=== PATIENT | female | born 1960 | race African-American/Black ===

== ENCOUNTER 2016-12-23 21:39 | Emergency (ER) | payer MEDICAID ==
[~2016-12-23] VITALS: Ht 160 cm; Wt 68.9 kg
[~2016-12-23 21:39] MED LIST: LOTENSIN10 MG PO; TENORMIN50 MG PO
[2016-12-23 22:56] LABS: APPEARANCE,URINE CLEAR; KETONES,URINE NEGATIVE (NEGATIVE); LEUKOCYTE ESTERASE ,URINE 1+ (NEGATIVE); NITRITE,URINE NEGATIVE (NEGATIVE); PH,URINE 7 (4.5-8.0); PROTEIN,URINE 1+ (NEGATIVE); UROBILINOGEN,URINE NORMAL MG/DL (0.0-1.0)
[2016-12-23 23:10] LABS: BACTERIA,URINE FEW /HPF; SQUAMOUS EPITHELIAL CELL,UR FEW /LPF (NONE/OCC); WBC,URINE 0-2 /HPF (0 - 2)
[2016-12-23 23:16] VITALS: BP 150/98
[2016-12-23] MEDS ORDERED: NITROFURANTOIN100 M2 ORAL (23:27)
[2016-12-23] MEDS ORDERED: DIFLUCAN200 MG ORAL (23:27)
[2016-12-23 23:30] VITALS: BP 150/98
--- NOTE | 2016-12-23 23:31 | Emergency Room Report ---
History of Present Illness General Chief Complaint: Female Urogenital Problems Source: Patient Present Illness HPI 56 YO F with 2 days dysuria. Denies assoc fever/chills, flank pain, polyuria. Feels well otherwise. Denies discharge, abd pain, frequent UTI. Allergies: Coded Allergies: No Known Allergies (Unverified , 07/31/12) Patient History Past Medical History: HTN Past Surgical History: none Pertinent Family History: none Social History: Denies: alcohol use, drug use, smoking Last Menstrual Period: YEARS Now: No Immunizations: UTD Reviewed Nursing Documentation: PMH: Agreed, PSxH: Agreed Nursing Documentation-PMH Past Medical History: No History, Except For Hx Cardiac Problems: Yes Hx Hypertension: Yes Hx Pacemaker: No Hx Cancer: No Hx Gastrointestinal Problems: No Hx Neurological Problems: No Review of Systems All Other Systems: negative except mentioned in HPI Physical Exam Vital Signs Date Time Temp Pulse Resp B/P Pulse Ox O2 Delivery O2 Flow Rate FiO2 12/23/16 21:58 97.3 88 14 185/115 100 Room Air Sp02 EP Interpretation: reviewed, normal General Appearance: normal inspection, well appearing, no apparent distress, alert Head: atraumatic ENT: normal ENT inspection, hearing grossly normal, normal voice Neck: normal inspection, full range of motion, supple, no bony tend Respiratory: normal inspection, lungs clear, normal breath sounds, no respiratory distress, no retraction, no wheezing Cardiovascular #1: regular rate, rhythm, no edema Gastrointestinal: normal inspection, normal bowel sounds, non tender, soft, no guarding, no hernia Genitourinary: no CVA tenderness Musculoskeletal: normal inspection, back normal, normal range of motion, Robel' s Sign negative Neurologic: normal inspection, alert, oriented x3, responsive, tax processor III-XII nml as tested, motor strength/tone normal, speech normal Psychiatric: normal inspection, judgement/insight normal, mood/affect normal Skin: normal inspection, normal color, no rash Lymphatic: normal inspection Medical Decision Making Diagnostic Impression: Primary Impression: Dysuria ER Course 56 YO F with dysuria. VSS. Afebrile. No systemic symptoms. UA with +LE. No nitrites, significant WBCs In joint decision with patient, prefers tx with Abx. Also requesting difulcan for frequent yeast infection after Abx Last Vital Signs Date Time Temp Pulse Resp B/P Pulse Ox O2 Delivery O2 Flow Rate FiO2 12/23/16 21:58 97.3 88 14 185/115 100 Room Air Status: improved Disposition: HOME, SELF-CARE Condition: Improved Scripts Fluconazole* (DIFLUCAN*) 200 Mg Tablet 200 MG ORAL DAILY for yeast infection, #1 TAB 0 Refills Prov: MC DAILEY M.D. 12/23/16 Nitrofurantoin Monohyd/M-Cryst* (MACROBID 100 MG*) 100 Mg Capsule 100 MG ORAL EVERY 12 HOURS for 7 Days, #14 CAP Prov: MC DAILEY M.D. 12/23/16 Referrals: NON PHYSICIAN (PCP) Patient Instructions: Urinary Tract Infection MC DAILEY M.D. Dec 23, 2016 23:31
== END 2016-12-23 23:30 | disposition home or self-care (01) ==
LOC: EMR 22:19
DX: R30.0 Dysuria (principal); I10 Essential (primary) hypertension
CPT/HCPCS: 81003; 99284